=== PATIENT | female | born 1995 | race Asian ===

== ENCOUNTER 2020-01-08 10:27 | Emergency (ER) | payer OTHER ==
--- NOTE | 2020-01-08 10:34 | ED ---
Lower Extremity - HPI Summary HPI Summary: This patient is a 24 year old F brought to [facility] by EMS with a chief complaint of left knee pain focused on the upper area of knee and swelling due to possible patellar dislocation last night 01/07/20 at 2300. Symptoms aggravated by movement/lifting knee. Symptoms alleviated by nothing. Per EMS, dancing in apartment and fell twisting her knee last night at 2300. Per EMS, pt woke up this morning with swollen knee. Pt reports patella popping back in last night ( had noticed it laterally displaced) and reports 2 ibuprofen taken this morning for pain. Pt reports she cannot left up her left leg due to pain. Has been unable to ambulate since last night. - History of Current Complaint Stated Complaint: L KNEE INJ Hx Obtained From: Patient, EMS Mechanism Of Injury: Fall From A Standing Position Onset/Duration: Still Present Timing: Constant Associated Signs And Symptoms: Positive: Swelling Aggravating Factor(s): Movement, Weight Bearing Alleviating Factor(s): Nothing - Allergies/Home Medications Allergies/Adverse Reactions: Allergies Allergy/AdvReac Type Severity Reaction Status Date / Time No Known Allergies Allergy Verified 01/08/20 10:34 PMH/Surg Hx/FS Hx/Imm Hx Endocrine/Hematology History: Denies: Hx Diabetes Cardiovascular History: Denies: Hx Hypertension Sensory History: Reports: Hx Contacts or Glasses Opthamlomology History: Reports: Hx Contacts or Glasses - Surgical History Surgery Procedure, Year, and Place: none - Family History Known Family History: Negative: Diabetes, Respiratory Disease - Social History Alcohol Use: Rare Hx Substance Use: No Substance Use Type: Reports: None Hx Tobacco Use: No Smoking Status (MU): Never Smoked Tobacco Review of Systems Negative: Fever Positive: Other - left knee pain and swelling All Other Systems Reviewed And Are Negative: Yes Physical Exam - Summary Physical Exam Summary: Constitutional: Well-developed, Well-nourished, Alert. (-) Distressed Skin: Warm, Dry HENT: Normocephalic; Atraumatic Eyes: Conjunctiva normal Neck: Musculoskeletal ROM normal neck. (-) JVD, (-) Stridor, (-) Nuchal rigidity Cardio: Skin well perfused, RRR Intact distal pulses Abd: ND Musculoskeletal: Left lower extremity: 2 + DP pulse, no tenderness of hip tib/ fib ankle or foot, diffuse swelling of the proximal knee with effusion, tenderness at quadriceps tendon insertion, unable to straight leg raise, significant pain with flexion or extension of knee. ROM limited 2/2 pain. No significant ligamentous laxity. Neuro: Alert, Oriented x3 Psych: Mood and affect Normal Triage Information Reviewed: Yes Vital Signs Reviewed: Yes Procedures - Sedation Patient Received Moderate/Deep Sedation with Procedure: No Diagnostics - Laboratory Lab Statement: Any lab studies that have been ordered have been reviewed, and results considered in the medical decision making process. - Radiology Knee X-Ray Radiology Interpretation Completed By: Radiologist Summary of Radiographic Findings: Per Radiologist,. Joint effusion. The possibility of acute hemarthrosis should BE considered. No. definite fracture on this limited two-view study. ED physician has reviewed this imaging report. Re-Evaluation - Re-Evaluation First Eval Re-Evaluation Time: 11:11 Comment: Discussing results of X-Ray Lower Extremity Course/Dx - Course Course Of Treatment: 24 y/o F p/w acute L knee pain and likely patellar disclocation (s/p reduction at home). - PE w tenderness over patella and quad tendon w joint effusion. Unable to SLR. Good DP pulse. LISA 1.04. Do not suspect knee dislocation or vascular injury. XR w joint effusion. Concern for quad tendon tear. Given knee immobilizer, crutches and ortho f/u - Diagnoses Provider Diagnoses: Patellar dislocation, Left knee pain, Knee effusion Discharge ED - Sign-Out/Discharge Documenting (check all that apply): Patient Departure - discharge - Discharge Plan Condition: Stable Disposition: HOME Patient Education Materials: Patellar Dislocation (ED), Tendon Repair (DC) Referrals: [facility] - [facility] [Primary Care Provider] - Additional Instructions: You were seen in the emergency department for knee pain. You likely tore a ligament or tendon in your knee. her knee immobilizer, use crutches. Please call the orthopedics office on Friday, let them know you were in the ER with concern for a patellar dislocation and tendon tear. Please follow up with your primary care doctor in next 2-3 days and return to emergency department for worsening pain, or tingling of the leg or foot, or concerning symptoms. It was a pleasure taking care of you today. - Billing Disposition and Condition Condition: STABLE Disposition: Home - Attestation Statements Document Initiated by Scribe: Yes Documenting Scribe: Sara Iraheta Provider For Whom Scribe is Documenting (Include Credential): Dr. Kerry Gore MD Scribe Attestation: I, Sara Iraheta, scribed for Dr. Kerry Gore MD on 01/08/20 at 1134. Scribe Documentation Reviewed: Yes Provider Attestation: The documentation as recorded by the Sara cullen accurately reflects the service I personally performed and the decisions made by me, Dr. Kerry Gore MD Status of Scribe Document: Viewed
[2020-01-08] MEDS ORDERED: oxyCODONE/Acetamin 5/325 MG* TAB PO ONE (12:16)
[2020-01-08 13:21] VITALS: BP 142/62
== END 2020-01-08 13:05 | disposition home or self-care (01) ==
LOC: ED 10:27
DX: S83.005A Unspecified dislocation of left patella, initial encounter (principal); M25.462 Effusion, left knee; W19.XXXA Unspecified fall, initial encounter; Y93.41 Activity, dancing; Y92.9 Unspecified place or not applicable; M25.562 Pain in left knee
CPT/HCPCS: 99283; A9270-GY

== ENCOUNTER 2024-04-08 03:41 | Observation (INO) ==
[2024-04-08 07:46] LABS: ABS Lymphocytes 1.1 10^3/uL (1.0-4.8); ABS Monocytes 0.3 10^3/uL (0.0-0.9); ABS Neutrophils 7.7 10^3/uL (1.5-7.6); Eosinophil % 0.3 %; Hematocrit 42.1 % (35-45); Mean Corpuscular Hemoglobin 31.2 pg (27-33); Mean Corpuscular Hgb Conc 33.2 g/dL (31-36); Platelet Count 242 10^3/uL (150-450); Red Blood Count 4.48 10^6/uL (3.63-4.92); Red Cell Distribution Width 12.8 % (12-17); White Blood Count 9.1 10^3/uL (3.8-11.8)
[2024-04-08] MEDS: Famotidine IV 10 MG/ML 2 ml VIAL (20 mg) IV SLOW PU ONE (07:51)
[2024-04-08] MEDS: Lactated Ringers 1000 ml BAG 1,000 ML IV ONE ×2 (07:51→09:51)
[2024-04-08 08:24] LABS: ALT 13 U/L (7-52); Albumin 4.2 g/dL (3.2-5.2); Albumin/Globulin Ratio 1.8 (1-3); Alkaline Phosphatase 44 U/L (35-149); Anion Gap 5 mmol/L (2-16); Blood Urea Nitrogen 11 mg/dL (6-24); C Reactive Protein < 1.00 mg/L (<8.01); CO2 Carbon Dioxide 25 mmol/L (22-32); Calcium 9.1 mg/dL (8.6-10.3); Chloride 106 mmol/L (101-111); Creatinine, Serum 0.66 mg/dL (0.51-0.95); Globulin 2.3 g/dL (2-4); Glucose 102 mg/dL (70-100); Sodium 136 mmol/L (135-145); Total Bilirubin 0.7 mg/dL (0.2-1.0); Total Protein 6.5 g/dL (6.4-8.9); eGFR CKD-EPI 121.7 (>60)
[2024-04-08 08:32] LABS: HCG Pregnancy < 0.60 mIU/mL
[2024-04-08] MEDS: EPINEPHrine Anaphylaxis SYR CERTADOSE SYR KIT IM ONE ×2 (09:10→13:13)
[2024-04-08] MEDS ORDERED: Famotidine IV 10 MG/ML 2 ml VIAL (20 mg) ONE (13:10)
[2024-04-08] MEDS ORDERED: EPINEPHrine Anaphylaxis SYR CERTADOSE SYR KIT IM PRN (14:12)
[2024-04-08] MEDS: Dexamethasone IV 4 MG/ML VIAL 1 ml VIAL IV SLOW PU ONE (23:03)
[2024-04-09 11:00] VITALS: BP 112/79
== END 2024-04-09 12:45 | disposition home or self-care (01) ==
LOC: ED 03:41 → EDHOLD 03:41 → SUATTDRO 13:58 → MEDTELE 15:44
PROVIDERS: ADMIT Internal Medicine; ATTEND Internal Medicine